=== PATIENT | female | born 1935 | race Hispanic/Latino ===

== ENCOUNTER → 2017-10-17 | Outpatient (CLI) | payer OTHER ==
[~2017-10-17] MED LIST: ASPI-1012 PO; GABA-531 PO; HYDR-309 PO; LOSA100T29 PO; METF500T6 PO; OXYB5TAB PO; PRAV20TA4 PO; TRAZ-185 PO
== END | disposition home or self-care (01) ==
LOC: OIH 09:40
PROVIDERS: ATTEND Family Medicine
DX: I12.9 Hypertensive chronic kidney disease with stage 1 through stage 4 chronic kidney disease, or unspecified chronic kidney disease (principal); N18.9 Chronic kidney disease, unspecified; R07.9 Chest pain, unspecified
CPT/HCPCS: 71046

== ENCOUNTER 2017-10-29 15:30 | Inpatient (IN) | payer OTHER ==
[~2017-10-29] VITALS: Ht 157.5 cm; Wt 71.2 kg
[~2017-10-29 15:30] MED LIST changes: -ASPI-1012 PO; -GABA-531 PO; -HYDR-309 PO
[2017-10-29 15:39] LABS: APPEARANCE,URINE Cloudy (CLEAR); BILIRUBIN,URINE Negative (NEGATIVE); COLOR,URINE Yellow (YELLOW); GLUCOSE, URINE (UA) TRACE mg/dL (NEGATIVE); KETONES,URINE Trace mg/dL (NEGATIVE); LEUKOCYTE ESTERASE ,URINE Large (NEGATIVE); NITRATE,URINE Positive (NEGATIVE); OCCULT BLOOD,URINE Negative (NEGATIVE); PROTEIN,URINE Trace (NEGATIVE)
[2017-10-29 15:47] LABS: BACTERIA,URINE Moderate /HPF (None Seen); RBC,URINE None Seen /HPF (0-1)
[2017-10-29 15:55] VITALS: BP 149/68
[2017-10-30] VITALS (20 sets, daily range): BP systolic 109–156; BP diastolic 54–85
[2017-10-30] MEDS ORDERED: GENTAMICIN SULFATE 240 MG in SODIUM CHLORIDE 0.9% 100 ML IV SCH (09:30)
[2017-10-30] MEDS: CEFAZOLIN SODIUM 1 GM VIAL IVP SCH ×3 (09:30→20:47)
[2017-10-30] MEDS ORDERED: SODIUM CHLORIDE 0.9% 1000ML 1,000 ML IV ONE (09:49)
[2017-10-30] MEDS ORDERED: GABA-531 PO (10:01)
[2017-10-30] MEDS ORDERED: OXYCODONE HCL 10 MG TAB.SR.12H PO ONE (11:42)
[2017-10-30] MEDS ORDERED: KETOROLAC TROMETHAMINE 15MG/ML ONE (11:42)
[2017-10-30] MEDS ORDERED: CELECOXIB 200 MG CAP ONE (11:42)
[2017-10-30] MEDS ORDERED: ACETAMINOPHEN EXTRA STRENGTH 500 MG TABLET ONE (11:42)
[2017-10-30] MEDS ORDERED: CEFAZOLIN SODIUM 1 GM VIAL ONE (11:52)
[2017-10-30] MEDS ORDERED: TRANEXAMIC ACID 1000MG/10ML IV ONE ×2 (11:52)
[2017-10-30] MEDS ORDERED: ROPIVACAINE 0.5% 5MG/ML 30ML IJ ONE (12:29)
[2017-10-30] MEDS ORDERED: EPHEDRINE SULFATE 50 MG/ML AMPULE ONE (13:01)
[2017-10-30] MEDS ORDERED: LIDOCAINE PF 2% 5ML ABBOJECT ONE (14:20)
[2017-10-30] MEDS ORDERED: ROCURONIUM BROMIDE 10MG/1ML 5ML VL ONE (14:20)
[2017-10-30] MEDS ORDERED: MIDAZOLAM HCL 1 MG/ML 2ML VIAL ONE (14:20)
[2017-10-30] MEDS ORDERED: PROPOFOL 10 MG/ML 20ML VIAL IV ONE ×2 (14:21→15:38)
[2017-10-30] MEDS ORDERED: ONDANSETRON HCL 4 MG/2 ML VIAL ONE (15:38)
[2017-10-30] MEDS ORDERED: DEXAMETHASONE SOD PHOSPHATE 10MG/ML 1ML VIAL ONE (15:38)
[2017-10-30] MEDS: SODIUM CHLORIDE 0.9% 1000ML 1,000 ML IV SCH (15:39)
[2017-10-30] MEDS ORDERED: OXYCODONE HCL 5 MG TAB PO PRN ×2 (15:45)
[2017-10-30] MEDS ORDERED: POTASSIUM CHLORIDE 20MEQ/100ML 100 ML IV PRN (15:45)
[2017-10-30] MEDS ORDERED: CALCIUM CARBONATE 500 MG TABLET PO PRN (15:45)
[2017-10-30] MEDS ORDERED: POTASSIUM CHLORIDE 20 MEQ ERTAB PO PRN (15:45)
[2017-10-30] MEDS ORDERED: TRAMADOL HCL 50 MG TABLET PO PRN (15:45)
[2017-10-30] MEDS ORDERED: LIDOCAINE HCL-MPF 1% 2ML VIAL IVP PRN (15:45)
[2017-10-30] MEDS: ACETAMINOPHEN EXTRA STRENGTH 500 MG TABLET PO SCH (15:45)
[2017-10-30] MEDS ORDERED: KETOROLAC TROMETHAMINE 15MG/ML IV PRN (15:45)
[2017-10-30] MEDS ORDERED: ONDANSETRON HCL 4 MG/2 ML VIAL IVP PRN (15:45)
[2017-10-30] MEDS ORDERED: FE FUMARATE/FA/MV, MIN COMB#15 1 TAB PO PRN (15:45)
[2017-10-30] MEDS ORDERED: TEMAZEPAM 15 MG CAPSULE PO PRN (15:45)
[2017-10-30] MEDS ORDERED: POTASSIUM CHLORIDE 10% ELIXIR 20 MEQ/15 ML UDCUP PO PRN (15:45)
[2017-10-30] MEDS ORDERED: DiphenhydrAMINE HCL 50 MG/ML VIAL IVP PRN (15:45)
[2017-10-30] MEDS: INSULIN HUMULIN R 100 UNIT/ML 3ML SQ SCH ×2 (16:30→20:59)
[2017-10-30] MEDS ORDERED: COMPOUND IV REFRIGERATED 1 EACH IVSOLN MISC PRN (18:45)
[2017-10-30] MEDS ORDERED: TRAZODONE HCL 50 MG TAB PO PRN ×2 (18:45→19:29)
[2017-10-30] MEDS ORDERED: CEFAZOLIN 2GM / 50 ML 50 ML IV SCH (20:45)
[2017-10-30] MEDS: CELECOXIB 200 MG CAP PO SCH (20:47)
[2017-10-30] MEDS: FAMOTIDINE 20MG TAB 20 MG TAB PO SCH (20:47)
[2017-10-30] MEDS: ASPIRIN 325 MG TABLET PO SCH (20:47)
[2017-10-30] MEDS: GABAPENTIN 300 MG CAPSULE PO SCH (20:59)
[2017-10-30] MEDS ORDERED: PREGABALIN 25 MG CAP PO SCH (21:00)
[2017-10-30] MEDS ORDERED: Pravastatin Sodium 20 MG PO SCH (21:00)
[2017-10-31 00:05] VITALS: BP 114/74
[2017-10-31] MEDS: ACETAMINOPHEN EXTRA STRENGTH 500 MG TABLET PO SCH ×3 (00:16→15:03)
[2017-10-31] MEDS: SODIUM CHLORIDE 0.9% 1000ML 1,000 ML IV SCH ×2 (01:39→11:39)
[2017-10-31 03:58] LABS: HEMATOCRIT 28.7 % (36-48); MEAN CORPUSCULAR HEMOGLOBIN 33.2 pg (27.0-33.0); MEAN CORPUSCULAR HGB CONC 35.3 g/dL (32.0-36.0); MEAN CORPUSCULAR VOLUME 94.1 fL (79-99); PLATELET COUNT (AUTO) 179 K/uL (130-400); RED BLOOD CELL COUNT(AUTO) 3.05 MIL/uL (4.00-5.50); RED CELL DISTRIBUTION WIDTH 14.7 % (11.0-15.5); WHITE BLOOD COUNT (AUTO) 9.2 K/uL (4.8-10.8)
[2017-10-31 04:00] VITALS: BP 117/66
[2017-10-31 04:14] LABS: CREATININE 1.1 mg/dL (0.5-1.5); POTASSIUM 5.6 mmol/L (3.5-5.1)
[2017-10-31] MEDS: CEFAZOLIN SODIUM 1 GM VIAL IVP SCH (04:47)
[2017-10-31] MEDS: INSULIN HUMULIN R 100 UNIT/ML 3ML SQ SCH ×2 (06:49→11:30)
[2017-10-31] MEDS ORDERED: SODIUM POLYSTYRENE SULFONATE 15 GM/60 ML ML PO SCH (07:15)
[2017-10-31 07:30] VITALS: BP 106/66
[2017-10-31] MEDS ORDERED: METFORMIN HCL 500 MG TABLET PO SCH (07:30)
[2017-10-31] MEDS ORDERED: POLYETHYLENE GLYCOL 3350 17 GM POWD.PACK PO SCH (09:00)
[2017-10-31] MEDS ORDERED: GENTAMICIN SULFATE 240 MG in SODIUM CHLORIDE 0.9% 100 ML IV SCH (09:00)
[2017-10-31] MEDS ORDERED: OXYBUTYNIN 5 MG TAB.SR.24H PO SCH (09:00)
[2017-10-31] MEDS ORDERED: LOSARTAN 100 MG TABLET PO SCH (09:00)
[2017-10-31] MEDS: ASPIRIN 325 MG TABLET PO SCH (09:24)
[2017-10-31] MEDS: FAMOTIDINE 20MG TAB 20 MG TAB PO SCH (09:24)
[2017-10-31] MEDS: GABAPENTIN 300 MG CAPSULE PO SCH ×2 (09:24→15:03)
[2017-10-31] MEDS: CELECOXIB 200 MG CAP PO SCH (09:24)
[2017-10-31 12:14] VITALS: BP 103/62
[2017-10-31] MEDS ORDERED: HYDR-309 PO (16:51)
[2017-10-31 17:30] VITALS: BP 112/67
[2017-11-02] MEDS ORDERED: BISACODYL 10 MG SUPP.RECT RC PRN (15:45)
== END 2017-10-31 19:50 | disposition home health service (06) | DRG 483 ==
LOC: EDSTATUS 15:30 → DAHIP 10-30 09:00 → 4AH 10-30 16:31
PROVIDERS: ADMIT Orthopaedic Surgery; ATTEND Orthopaedic Surgery
PROC: 0RRK00Z Replacement of Left Shoulder Joint with Reverse Ball and Socket Synthetic Substitute, Open Approach (ICD-10-PCS; principal; 2017-10-30 13:22)
DX: M12.812 Other specific arthropathies, not elsewhere classified, left shoulder (principal); E78.5 Hyperlipidemia, unspecified; Z79.82 Long term (current) use of aspirin; Z96.641 Presence of right artificial hip joint; Z96.652 Presence of left artificial knee joint; G89.29 Other chronic pain; E11.22 Type 2 diabetes mellitus with diabetic chronic kidney disease; I12.9 Hypertensive chronic kidney disease with stage 1 through stage 4 chronic kidney disease, or unspecified chronic kidney disease; N18.3 Chronic kidney disease, stage 3 (moderate); E11.42 Type 2 diabetes mellitus with diabetic polyneuropathy; E78.00 Pure hypercholesterolemia, unspecified; E11.51 Type 2 diabetes mellitus with diabetic peripheral angiopathy without gangrene; E66.01 Morbid (severe) obesity due to excess calories; F51.01 Primary insomnia; D50.8 Other iron deficiency anemias
CPT/HCPCS: 36415; 73020; 80048; 81001; 82948; 84132; 85027; 88304; 88311; 96365; 96374; 97039; A4218; A4565; J0690; J1100; J1580; J1885; J2001; J2250; J2405; J2704; J2795; J3490; J7030

== ENCOUNTER 2020-01-13 13:54 | Inpatient (IN) | payer OTHER ==
[~2020-01-13] VITALS: Ht 165.1 cm; Wt 59.9 kg
[~2020-01-13 13:54] MED LIST changes: +GABA-531 PO; +HYDR-4457 PO; -LOSA100T29 PO; +LOSA100T58 PO; +METF-444 PO; -METF500T6 PO; +OXYB-66 PO; -OXYB5TAB PO
[2020-01-13 14:28] LABS: BASOPHILS % (AUTO) 0.2 % (0.0-5.0); EOSINOPHILS % (AUTO) 0.1 % (0.0-8.0); HEMATOCRIT 32.7 % (36-48); LYMPHOCYTES % (AUTO) 7.3 % (21.0-51.0); MEAN CORPUSCULAR HEMOGLOBIN 31.5 pg (27.0-33.0); MEAN CORPUSCULAR HGB CONC 33.6 g/dL (32.0-36.0); MEAN CORPUSCULAR VOLUME 93.7 fL (79-99); NEUTROPHILS % (AUTO) 84.1 % (40.0-77.0); PLATELET COUNT (AUTO) 172 K/uL (130-400); RED BLOOD CELL COUNT(AUTO) 3.49 MIL/uL (4.00-5.50); RED CELL DISTRIBUTION WIDTH 13.2 % (11.0-15.5); WHITE BLOOD COUNT (AUTO) 10.2 K/uL (4.8-10.8)
[2020-01-13 14:46] LABS: CREATININE 2.2 mg/dL (0.5-1.5); POTASSIUM 4.8 mmol/L (3.5-5.1)
[2020-01-13 15:00] LABS: ALBUMIN 3.1 g/dL (3.5-5.0); BILIRUBIN,TOTAL 0.4 mg/dL (0.2-1.0); TOTAL PROTEIN, SERUM 6.5 g/dL (6.0-8.3)
[2020-01-13] MEDS ORDERED: ASPIRIN 325 MG TABLET ONE (15:12)
[2020-01-13 15:18] LABS: APPEARANCE,URINE CLOUDY (CLEAR); BILIRUBIN,URINE SMALL (NEGATIVE); COLOR,URINE YELLOW (YELLOW); GLUCOSE, URINE (UA) NEGATIVE (NEGATIVE); KETONES,URINE NEGATIVE (NEGATIVE); LEUKOCYTE ESTERASE ,URINE LARGE (NEGATIVE); NITRATE,URINE NEGATIVE (NEGATIVE); OCCULT BLOOD,URINE MODERATE (NEGATIVE); PROTEIN,URINE 100 mg/dL (NEGATIVE)
[2020-01-13 15:25] LABS: INR 0.93 (0.85-1.15); PARTIAL THROMBOPLASTIN TIME 33.2 SEC (26.3-35.5); PROTHROMBIN TIME 10.1 SEC (9.6-11.6)
[2020-01-13 15:29] LABS: BACTERIA,URINE Many /HPF (None Seen); WBC,URINE 51-100 /HPF (0-1)
[2020-01-13 15:30] LABS: MUCUS,URINE Few LPF (None Seen); SQUAMOUS EPITHELIAL CELL,UR 0-2 /HPF (0-2)
[2020-01-13] MEDS ORDERED: CEFTRIAXONE SODIUM 1 GM ONE (16:28)
[2020-01-13] MEDS ORDERED: HEPARIN SODIUM 5000UNIT/ML 1ML VIAL ONE (23:24)
[2020-01-14] MEDS ORDERED: MIDODRINE HCL 5 MG TABLET ONE ×2 (03:37→06:43)
[2020-01-14] MEDS ORDERED: SODIUM CHLORIDE 0.9% 1000ML 1,000 ML IV SCH (07:15)
[2020-01-14] MEDS ORDERED: GLUCAGON 1MG KIT 1 MG ML IM PRN (11:00)
[2020-01-14] MEDS ORDERED: HYDROCODONE/ACETAMINOPHEN 5/325 MG TAB PO PRN (11:00)
[2020-01-14] MEDS ORDERED: POTASSIUM CHLORIDE 20MEQ/100ML 100 ML IV PRN (11:00)
[2020-01-14] MEDS ORDERED: LIDOCAINE HCL-MPF 1% 2ML VIAL IV PRN (11:00)
[2020-01-14] MEDS ORDERED: DEXTROSE 50%-WATER 50 ML DISP.SYRIN IV PRN (11:00)
[2020-01-14] MEDS ORDERED: TRAZODONE HCL 50 MG TAB PO PRN (11:00)
[2020-01-14] MEDS ORDERED: POTASSIUM CHLORIDE 10% ELIXIR 20 MEQ/15 ML UDCUP PO PRN (11:00)
[2020-01-14] MEDS ORDERED: MAGNESIUM 2GM PREMIX 50ML 50 ML IV PRN (11:00)
[2020-01-14] MEDS ORDERED: POTASSIUM CHLORIDE 20 MEQ ERTAB PO PRN (11:00)
[2020-01-14] MEDS: INSULIN HUMULIN R 100 UNIT/ML 3ML SQ SCH ×3 (11:30→21:00)
[2020-01-14 12:24] VITALS: BP 132/67
[2020-01-14] MEDS: HEPARIN SODIUM 5000UNIT/ML 1ML VIAL SQ SCH ×2 (12:31→21:00)
[2020-01-14] MEDS: ASPIRIN 81MG TAB.CHEW PO SCH (12:33)
[2020-01-14] MEDS: MIDODRINE HCL 5 MG TABLET PO SCH ×3 (12:33→21:00)
--- NOTE | 2020-01-14 13:00 | NUR ---
MARQUEZ - SPOKE WITH SON FOR DC PLANNING GERALD REARDON SPOKE WITH SON MAYRA FOR DC PLANNING. PER SON, PATIENT LIVES ALONE, IS INDEPENDENT OF ADLS, HAS NO DME/HH OR PROVIDER SERVICES, AND DCP IS HOME, SON TO PROVIDE SERVICES Addendum: 01/15/20 at 1928 by MARLYN CLAROS RN CM Amended: Links added.
--- NOTE | 2020-01-14 14:51 | NUR ---
1440 patient signed IM Letter, I faxed IM Letter to [phone] and placed in chart under consent tab.
[2020-01-14 15:37] VITALS: BP 104/54
[2020-01-14] MEDS: CEFTRIAXONE SODIUM 1 GM IVP SCH (17:18)
[2020-01-14] MEDS: GABAPENTIN 300 MG CAPSULE PO SCH ×2 (17:18→21:00)
[2020-01-14 19:26] VITALS: BP 104/50
[2020-01-14] MEDS ORDERED: ATORVASTATIN CALCIUM 10 MG TABLET PO SCH (21:00)
--- NOTE | 2020-01-14 23:29 | NUR ---
Lab called regarding troponin of 1.20 Called CARLTON Tyler for troponin of 1.20, up from previously 0.91 Pt is asymptomatic however. Discussed w/CARLTON Tyler, requests troponin recheck 6 hours after last and to call if pt becomes symptomatic.
[2020-01-14 23:33] VITALS: BP 130/66
[2020-01-15 03:44] VITALS: BP 122/65
[2020-01-15 04:19] LABS: BASOPHILS % (AUTO) 0.4 % (0.0-5.0); EOSINOPHILS % (AUTO) 0.9 % (0.0-8.0); HEMATOCRIT 30.2 % (36-48); LYMPHOCYTES % (AUTO) 12.4 % (21.0-51.0); MEAN CORPUSCULAR HEMOGLOBIN 30.9 pg (27.0-33.0); MEAN CORPUSCULAR HGB CONC 32.8 g/dL (32.0-36.0); MEAN CORPUSCULAR VOLUME 94.4 fL (79-99); MONOCYTES % (AUTO) 10.1 % (3.0-13.0); NEUTROPHILS % (AUTO) 75.7 % (40.0-77.0); PLATELET COUNT (AUTO) 150 K/uL (130-400); RED CELL DISTRIBUTION WIDTH 13.3 % (11.0-15.5); WHITE BLOOD COUNT (AUTO) 7.9 K/uL (4.8-10.8)
[2020-01-15 05:20] LABS: ALBUMIN 2.3 g/dL (3.5-5.0); B-TYPE NATRIURETIC PEPTIDE 241 pg/mL (0-100); BILIRUBIN,TOTAL 0.2 mg/dL (0.2-1.0); CREATININE 1.3 mg/dL (0.5-1.5); MAGNESIUM 1.6 mg/dL (1.80-2.40); PHOSPHORUS 2.2 mg/dL (2.5-4.9); POTASSIUM 4.2 mmol/L (3.5-5.1)
[2020-01-15] MEDS: INSULIN HUMULIN R 100 UNIT/ML 3ML SQ SCH ×4 (05:24→21:34)
[2020-01-15 08:37] VITALS: BP 135/80
[2020-01-15] MEDS ORDERED: LOSARTAN 100 MG TABLET PO SCH (09:00)
[2020-01-15] MEDS: OXYBUTYNIN 5 MG TAB.SR.24H PO SCH (09:00)
[2020-01-15] MEDS: MIDODRINE HCL 5 MG TABLET PO SCH ×3 (09:00→21:00)
[2020-01-15] MEDS ORDERED: ENOXAPARIN SODIUM 40 MG/0.4 ML SYRINGE SQ SCH (09:00)
[2020-01-15] MEDS: GABAPENTIN 300 MG CAPSULE PO SCH ×3 (10:18→21:31)
[2020-01-15] MEDS: PANTOPRAZOLE SODIUM 40 MG TABLET.DR PO SCH (10:18)
[2020-01-15] MEDS: ASPIRIN 81MG TAB.CHEW PO SCH (10:18)
[2020-01-15] MEDS: HEPARIN SODIUM 5000UNIT/ML 1ML VIAL SQ SCH ×2 (10:24→21:35)
--- NOTE | 2020-01-15 10:28 | NUR ---
Midrodrine held for b/p >130.
[2020-01-15] MEDS ORDERED: CLOPIDOGREL BISULFATE 300 MG TAB PO SCH (12:00)
[2020-01-15 12:09] VITALS: BP 127/71
[2020-01-15] MEDS ORDERED: OXYBUTYNIN CHLORIDE 5 MG TABLET ONE (16:28)
[2020-01-15] MEDS: CEFTRIAXONE SODIUM 1 GM IVP SCH (16:32)
[2020-01-15 16:40] VITALS: BP 125/78
--- NOTE | 2020-01-15 18:50 | NUR ---
call made to [employer] dispatcher for regarding pt fall. No new orders made at this time. Will continue to monitor.
[2020-01-15 20:17] VITALS: BP 134/74
[2020-01-15] MEDS ORDERED: SODIUM CHLORIDE 0.9% 250 ML IV ONE (22:18)
[2020-01-16 00:03] VITALS: BP 143/77
[2020-01-16 04:08] VITALS: BP 144/75
[2020-01-16 05:20] LABS: BASOPHILS % (AUTO) 0.5 % (0.0-5.0); EOSINOPHILS % (AUTO) 2.6 % (0.0-8.0); LYMPHOCYTES % (AUTO) 20.7 % (21.0-51.0); MEAN CORPUSCULAR HEMOGLOBIN 30.8 pg (27.0-33.0); MEAN CORPUSCULAR HGB CONC 32.9 g/dL (32.0-36.0); MEAN CORPUSCULAR VOLUME 93.7 fL (79-99); MONOCYTES % (AUTO) 16.3 % (3.0-13.0); NEUTROPHILS % (AUTO) 59.4 % (40.0-77.0); PLATELET COUNT (AUTO) 162 K/uL (130-400); RED BLOOD CELL COUNT(AUTO) 3.31 MIL/uL (4.00-5.50); RED CELL DISTRIBUTION WIDTH 13.3 % (11.0-15.5); WHITE BLOOD COUNT (AUTO) 5.7 K/uL (4.8-10.8)
[2020-01-16 05:38] LABS: ALBUMIN 2.5 g/dL (3.5-5.0); BILIRUBIN,TOTAL 0.2 mg/dL (0.2-1.0); CREATININE 1.2 mg/dL (0.5-1.5); MAGNESIUM 2.4 mg/dL (1.80-2.40); PHOSPHORUS 2.9 mg/dL (2.5-4.9); POTASSIUM 4.1 mmol/L (3.5-5.1); TOTAL PROTEIN, SERUM 6.5 g/dL (6.0-8.3)
[2020-01-16] MEDS: INSULIN HUMULIN R 100 UNIT/ML 3ML SQ SCH ×4 (06:22→20:53)
[2020-01-16 08:00] VITALS: BP 134/60
[2020-01-16] MEDS: MIDODRINE HCL 5 MG TABLET PO SCH ×3 (09:00→20:32)
[2020-01-16] MEDS: ATORVASTATIN CALCIUM 20 MG TABLET PO SCH (09:00)
[2020-01-16] MEDS: LOSARTAN 50 MG TABLET PO SCH (09:00)
[2020-01-16] MEDS: OXYBUTYNIN 5 MG TAB.SR.24H PO SCH (09:00)
[2020-01-16] MEDS: PANTOPRAZOLE SODIUM 40 MG TABLET.DR PO SCH (09:00)
[2020-01-16] MEDS: CLOPIDOGREL BISULFATE 75 MG TAB PO SCH (11:16)
[2020-01-16] MEDS: METOPROLOL SUCCINATE 50 MG TAB.SR.24H PO SCH (11:16)
[2020-01-16] MEDS: GABAPENTIN 300 MG CAPSULE PO SCH ×3 (11:17→20:32)
[2020-01-16] MEDS: ASPIRIN 81MG TAB.CHEW PO SCH (11:17)
[2020-01-16 11:36] VITALS: BP 154/71
[2020-01-16] MEDS: HEPARIN SODIUM 5000UNIT/ML 1ML VIAL SQ SCH ×2 (11:36→20:32)
[2020-01-16 16:00] VITALS: BP 157/84
[2020-01-16] MEDS: CEFTRIAXONE SODIUM 1 GM IVP SCH (18:29)
[2020-01-16 19:35] VITALS: BP 155/72
[2020-01-16] MEDS: GUAIFENESIN-DM 200/20 MG 10 ML PO PRN (20:32)
[2020-01-17 00:30] VITALS: BP 106/49
[2020-01-17 05:36] LABS: BASOPHILS % (AUTO) 0.6 % (0.0-5.0); EOSINOPHILS % (AUTO) 3.5 % (0.0-8.0); HEMATOCRIT 30.8 % (36-48); LYMPHOCYTES % (AUTO) 18.8 % (21.0-51.0); MEAN CORPUSCULAR HEMOGLOBIN 31.5 pg (27.0-33.0); MEAN CORPUSCULAR HGB CONC 34.1 g/dL (32.0-36.0); MEAN CORPUSCULAR VOLUME 92.5 fL (79-99); MONOCYTES % (AUTO) 13.4 % (3.0-13.0); NEUTROPHILS % (AUTO) 63.3 % (40.0-77.0); PLATELET COUNT (AUTO) 177 K/uL (130-400); RED BLOOD CELL COUNT(AUTO) 3.33 MIL/uL (4.00-5.50); WHITE BLOOD COUNT (AUTO) 5.4 K/uL (4.8-10.8)
[2020-01-17 05:55] LABS: ALBUMIN 2.6 g/dL (3.5-5.0); BILIRUBIN,TOTAL 0.3 mg/dL (0.2-1.0); MAGNESIUM 1.6 mg/dL (1.80-2.40); PHOSPHORUS 3.9 mg/dL (2.5-4.9); POTASSIUM 3.6 mmol/L (3.5-5.1); TOTAL PROTEIN, SERUM 6.5 g/dL (6.0-8.3)
[2020-01-17] MEDS: INSULIN HUMULIN R 100 UNIT/ML 3ML SQ SCH ×4 (06:08→21:00)
[2020-01-17 06:26] VITALS: BP 149/74
[2020-01-17] MEDS: GUAIFENESIN-DM 200/20 MG 10 ML PO PRN ×2 (06:39→14:25)
[2020-01-17] MEDS: ASPIRIN 81MG TAB.CHEW PO SCH (09:10)
[2020-01-17] MEDS: METOPROLOL SUCCINATE 50 MG TAB.SR.24H PO SCH (09:11)
[2020-01-17] MEDS: MIDODRINE HCL 5 MG TABLET PO SCH ×3 (09:11→21:45)
[2020-01-17] MEDS: PANTOPRAZOLE SODIUM 40 MG TABLET.DR PO SCH (09:11)
[2020-01-17] MEDS: GABAPENTIN 300 MG CAPSULE PO SCH ×3 (09:11→21:45)
[2020-01-17] MEDS: LOSARTAN 50 MG TABLET PO SCH (09:11)
[2020-01-17] MEDS: ATORVASTATIN CALCIUM 20 MG TABLET PO SCH (09:11)
[2020-01-17] MEDS: OXYBUTYNIN 5 MG TAB.SR.24H PO SCH (09:11)
[2020-01-17] MEDS: CLOPIDOGREL BISULFATE 75 MG TAB PO SCH (09:11)
[2020-01-17] MEDS: HEPARIN SODIUM 5000UNIT/ML 1ML VIAL SQ SCH ×2 (09:17→21:46)
--- NOTE | 2020-01-17 10:28 | NUR ---
Marisel BENDER NP, SPEAKING WITH PT.'S SON VIA TELEPHONE RE:PT.'S STATUS AND PLAN OF CARE. QUESTIONS ANSWERED BY MARKETING SENIOR RECRUITER.
[2020-01-17 11:52] VITALS: BP 148/67
[2020-01-17] MEDS: CEFTRIAXONE SODIUM 1 GM IVP SCH (15:20)
[2020-01-17 16:00] VITALS: BP 121/43
[2020-01-17 20:35] VITALS: BP 128/54
[2020-01-18] MEDS: GUAIFENESIN-DM 200/20 MG 10 ML PO PRN (04:00)
[2020-01-18 04:28] VITALS: BP 142/58
[2020-01-18] MEDS: INSULIN HUMULIN R 100 UNIT/ML 3ML SQ SCH ×3 (06:23→16:30)
[2020-01-18 08:00] VITALS: BP 128/81
[2020-01-18] MEDS: MIDODRINE HCL 5 MG TABLET PO SCH ×2 (09:00→14:00)
[2020-01-18] MEDS: LOSARTAN 50 MG TABLET PO SCH (09:16)
[2020-01-18] MEDS: ATORVASTATIN CALCIUM 20 MG TABLET PO SCH (09:18)
[2020-01-18] MEDS: GABAPENTIN 300 MG CAPSULE PO SCH ×2 (09:18→15:50)
[2020-01-18] MEDS: PANTOPRAZOLE SODIUM 40 MG TABLET.DR PO SCH (09:18)
[2020-01-18] MEDS: METOPROLOL SUCCINATE 50 MG TAB.SR.24H PO SCH (09:18)
[2020-01-18] MEDS: OXYBUTYNIN 5 MG TAB.SR.24H PO SCH (09:19)
[2020-01-18] MEDS: ASPIRIN 81MG TAB.CHEW PO SCH (09:19)
[2020-01-18] MEDS: CLOPIDOGREL BISULFATE 75 MG TAB PO SCH (09:19)
[2020-01-18] MEDS: HEPARIN SODIUM 5000UNIT/ML 1ML VIAL SQ SCH (09:24)
--- NOTE | 2020-01-18 10:00 | NUR ---
PATIENT'S SON VERY CONCERNED THAT [facility] IS GOING TO SEND PT TO NURSING RAY MESSAGE LEFT- CALL BACK MADE REASSURED SON THATDANIEL WICK REQUIRE CONSENT FORM PATIENT AND FAMILY, NO NOTES IN CHART THAT STATES REFERRAL WAS INITIATED, JUST SUGGESTED A PLAN. SON STATES HIS SISTER IS COMING FROM [place] TO TAKE PT BACK WITH HER. ADVISED LANE SOTO OF SAME, [employer] THAT PLAN, EXPECT TO DC TODAY Addendum: 01/18/20 at 1115 by MARLYN CLAROS RN CM Amended: Links added.
--- NOTE | 2020-01-18 11:15 | NUR ---
CALL KIKE LY ON DISCHARGE AT [phone] ON DISCHARGE CALL FROM DAUGHTER, ANXIOUS OVER THE PHONE, STATES SHE IS COMING RIGHT NOW TO GET HER MOM AND TAKE HER. STATESS THAT SHE JUST ARRIVED FOR[place]. SHE IS HERE TO TAKE HER MOM OUT OF THE HOSPITAL AND SHE IS NOT GOING INTO ANY [facility]. ADVISED HER THAT WE UNDERSTOOD THAT AND THAT A HOSPITAL CANNOT PLACE A PATIENT WITHOUT CONSENT.ADVISED HER THAT THE PATTERNMAKER APPRENTICE METAL STILL NEEDS TO DC PT, ETC. VERBALIZED UNDERSTANDING BUT SOUNDED WORRIED AND UPSET. NUMBERS GIVEN OF NURSING STATION AND FOR NURSE. ADVISED HER WOULD PUT NOTES IN CHART Addendum: 01/18/20 at 1121 by MARLYN CLAROS RN Amended: Links added.
[2020-01-18 12:45] VITALS: BP 147/72
[2020-01-18] MEDS: CEFTRIAXONE SODIUM 1 GM IVP SCH (15:51)
[2020-01-18] MEDS ORDERED: ASPI-1005 PO (15:56)
[2020-01-18] MEDS ORDERED: CLOP75TA14 PO (15:56)
[2020-01-18] MEDS ORDERED: METO50TA9 PO (15:56)
[2020-01-18] MEDS ORDERED: LOSA50TA2 PO (15:56)
[2020-01-18] MEDS ORDERED: SULF1TAB42 PO (15:58)
[2020-01-18 18:18] VITALS: BP 144/66
--- NOTE | 2020-01-18 18:29 | NUR ---
1830 Spoke With Daughter Amy Regarding Discharge instructions. She was made aware of patients diagnosis and need for follow ups with PCP and Cardiology in 2 weeks. She states she is taking her mother to [place] I did inform her that patient needs to see MDs as she did have a NSTEMI. She was made aware of discharge prescriptions and what pharmacy they were sent to and states she will pick them up today prior to getting her mother from hospital. Medications were reviewed as for what they are being given for.
== END 2020-01-18 18:45 | disposition home or self-care (01) | DRG 311 ==
LOC: EDH 13:54 → INTOOBSV 18:45 → OBSVTOIN 18:45 → EDHIP 18:45 → 4BH 01-14 10:56 → 4CH 01-16 23:04
PROVIDERS: ADMIT Internal Medicine; ATTEND Internal Medicine
DX: I24.9 Acute ischemic heart disease, unspecified (principal); G92 Toxic encephalopathy; N39.0 Urinary tract infection, site not specified; N18.4 Chronic kidney disease, stage 4 (severe); I95.9 Hypotension, unspecified; E11.40 Type 2 diabetes mellitus with diabetic neuropathy, unspecified; E11.21 Type 2 diabetes mellitus with diabetic nephropathy; B96.20 Unspecified Escherichia coli [E. coli] as the cause of diseases classified elsewhere; E11.22 Type 2 diabetes mellitus with diabetic chronic kidney disease; E66.9 Obesity, unspecified; E78.00 Pure hypercholesterolemia, unspecified; E78.5 Hyperlipidemia, unspecified; F03.90 Unspecified dementia, unspecified severity, without behavioral disturbance, psychotic disturbance, mood disturbance, and anxiety; I12.9 Hypertensive chronic kidney disease with stage 1 through stage 4 chronic kidney disease, or unspecified chronic kidney disease; Z79.02 Long term (current) use of antithrombotics/antiplatelets; Z79.82 Long term (current) use of aspirin; Z79.899 Other long term (current) drug therapy; Z20.828 Contact with and (suspected) exposure to other viral communicable diseases
CPT/HCPCS: 36415; 70450; 71045; 72125; 80053; 81001; 82550; 82948; 83605; 83735; 83880; 84100; 84484; 85025; 85610; 85730; 87040; 87077; 87088; 87186; 87426; 93005; 93306; 93356; G0378; J0696; J1644; J3475; J7050; U0003

== ENCOUNTER 2021-09-19 08:35 | Observation (INO) | payer OTHER ==
[2021-09-13 12:36] LABS: BASOPHILS % (AUTO) 0.8 % (0.0-5.0); EOSINOPHILS % (AUTO) 2.9 % (0.0-8.0); HEMATOCRIT 33.6 % (36-48); LYMPHOCYTES % (AUTO) 42.6 % (21.0-51.0); MEAN CORPUSCULAR HEMOGLOBIN 30.5 pg (27.0-33.0); MEAN CORPUSCULAR HGB CONC 31.8 g/dL (32.0-36.0); MEAN CORPUSCULAR VOLUME 95.7 fL (79-99); MONOCYTES % (AUTO) 8.3 % (3.0-13.0); NEUTROPHILS % (AUTO) 45.1 % (40.0-77.0); PLATELET COUNT (AUTO) 218 K/uL (130-400); RED BLOOD CELL COUNT(AUTO) 3.51 MIL/uL (4.00-5.50); WHITE BLOOD COUNT (AUTO) 3.9 K/uL (4.8-10.8)
[2021-09-13 12:49] LABS: CREATININE 0.9 mg/dL (0.5-1.5); POTASSIUM 5.1 mmol/L (3.5-5.1)
[2021-09-13 12:55] LABS: INR 1.01 (0.85-1.15)
[2021-09-13 12:57] LABS: PARTIAL THROMBOPLASTIN TIME 29.6 SEC (26.3-35.5)
[2021-09-18 14:54] VITALS: BP 147/62
[~2021-09-19] VITALS: Ht 165.1 cm; Wt 65.0 kg
[2021-09-19] VITALS (24 sets, daily range): BP systolic 101–153; BP diastolic 56–81
[2021-09-19] MEDS: CEFAZOLIN SODIUM 1 GM VIAL IVP SCH ×3 (06:00→19:51)
[~2021-09-19 08:35] MED LIST changes: +ATOR20TA65 PO; +DULO30CA52 PO; -GABA-531 PO; +GABA300C PO; -HYDR-4457 PO; +ISOS30TA92 PO; +LACTATED RINGERS 1000ML 1,000 ML IV SCH; +LEVO25CA4 PO; -LOSA100T58 PO; +LOSA50TA2 PO; +MELO-108 PO; +METO-408 PO; -OXYB-66 PO; -PRAV20TA4 PO; +TRAM50TA4 PO; -TRAZ-185 PO
[2021-09-19] MEDS ORDERED: 0.9%NACL 1000ML 1,000 ML IV ONE (09:58)
[2021-09-19] MEDS ORDERED: PROPOFOL 10 MG/ML 20ML VIAL IV ONE (10:46)
[2021-09-19] MEDS ORDERED: GLYCOPYRROLATE 1 MG/5 ML SYRINGE ONE (10:52)
[2021-09-19] MEDS ORDERED: ROCURONIUM 10MG/1ML SYR 10 MG/ML ML ONE (10:53)
[2021-09-19] MEDS ORDERED: NEOSTIGMINE 5MG/5ML SYR IV ONE (10:53)
[2021-09-19] MEDS ORDERED: FENTANYL CITRATE PF 50 MCG/1 ML 5ML AMP IV ONE (10:53)
[2021-09-19] MEDS ORDERED: ONDANSETRON 4MG INJ ONE (12:02)
[2021-09-19] MEDS ORDERED: TRANEXAMIC ACID 1000MG/10ML ONE (12:23)
[2021-09-19] MEDS ORDERED: ACET-2079 PO (13:14)
[2021-09-19] MEDS ORDERED: KCL 20 MEQ ERTAB PO PRN (14:00)
[2021-09-19] MEDS: 0.9%NACL 1000ML 1,000 ML IV SCH ×2 (14:00→19:56)
[2021-09-19] MEDS ORDERED: POTASSIUM CHLORIDE 10% ELIXIR 20 MEQ/15 ML UDCUP PO PRN (14:00)
[2021-09-19] MEDS ORDERED: ONDANSETRON 4MG INJ IVP PRN (14:00)
[2021-09-19] MEDS ORDERED: LIDOCAINE HCL-MPF 1% 2ML VIAL IV PRN (14:00)
[2021-09-19] MEDS ORDERED: POTASSIUM CHLORIDE 20MEQ/100ML 100 ML IV PRN (14:00)
[2021-09-19] MEDS ORDERED: MORPHINE 4 MG SYG IVP PRN (14:00)
[2021-09-19] MEDS ORDERED: HYDROCODONE/ACETAMINOPHEN 5/325 MG TAB PO PRN (14:00)
[2021-09-19] MEDS: GABAPENTIN 300 MG CAPSULE PO SCH ×2 (14:00→19:52)
[2021-09-19] MEDS: ACETAMINOPHEN 500 MG TABLET PO SCH ×2 (14:00→23:33)
[2021-09-19] MEDS ORDERED: MEPERIDINE-PF 25 MG/ML SYG ONE ×2 (14:18→14:30)
[2021-09-19] MEDS: INSULIN HUMULIN R 100 UNIT/ML 3ML SQ SCH ×2 (16:30→21:00)
[2021-09-19] MEDS: TRAMADOL HCL 50 MG TABLET PO SCH ×2 (18:04→23:33)
[2021-09-19] MEDS: FAMOTIDINE 20MG TAB PO SCH (19:52)
[2021-09-20] MEDS: CEFAZOLIN SODIUM 1 GM VIAL IVP SCH (02:43)
[2021-09-20 03:30] LABS: HEMATOCRIT 26.8 % (36-48); MEAN CORPUSCULAR HEMOGLOBIN 29.7 pg (27.0-33.0); MEAN CORPUSCULAR HGB CONC 31.3 g/dL (32.0-36.0); MEAN CORPUSCULAR VOLUME 94.7 fL (79-99); RED BLOOD CELL COUNT(AUTO) 2.83 MIL/uL (4.00-5.50); RED CELL DISTRIBUTION WIDTH 14.9 % (11.0-15.5); WHITE BLOOD COUNT (AUTO) 7.4 K/uL (4.8-10.8)
[2021-09-20 03:41] LABS: CREATININE 1.1 mg/dL (0.5-1.5); POTASSIUM 4.9 mmol/L (3.5-5.1)
[2021-09-20 04:19] VITALS: BP 99/58
[2021-09-20] MEDS: HYDROCODONE/ACETAMINOPHEN 10/325 MG TAB PO PRN ×2 (04:54→08:21)
[2021-09-20] MEDS: LEVOTHYROXINE 25 MCG TABLET PO SCH (05:47)
[2021-09-20] MEDS: TRAMADOL HCL 50 MG TABLET PO SCH ×4 (05:47→22:57)
[2021-09-20] MEDS: ACETAMINOPHEN 500 MG TABLET PO SCH ×3 (05:48→22:56)
[2021-09-20] MEDS: INSULIN HUMULIN R 100 UNIT/ML 3ML SQ SCH ×4 (05:51→19:43)
[2021-09-20 06:46] VITALS: BP 115/50
[2021-09-20] MEDS ORDERED: ROPIVICAINE 250MG+KETOROLAC 15MG+EPINEPHRINE 0.3+CLONIDINE 80 IV PRN ×5 (08:00)
[2021-09-20] MEDS: LOSARTAN 50 MG TABLET PO SCH (08:19)
[2021-09-20] MEDS: ENOXAPARIN SODIUM 30 MG/0.3 ML SQ SCH (08:19)
[2021-09-20] MEDS: METFORMIN HCL 500 MG TABLET PO SCH (08:20)
[2021-09-20] MEDS: DULOXETINE HCL 30 MG CAP PO SCH (08:20)
[2021-09-20] MEDS: ISOSORBIDE MONO 30MG SR TAB PO SCH (08:20)
[2021-09-20] MEDS: GABAPENTIN 300 MG CAPSULE PO SCH ×3 (08:20→19:43)
[2021-09-20] MEDS: FAMOTIDINE 20MG TAB PO SCH ×2 (08:20→19:43)
[2021-09-20] MEDS: POLYETHYLENE GLYCOL 3350 17 GM POWD.PACK PO SCH (08:21)
[2021-09-20] MEDS: **HM**(Metoprolol Succinate 12.5 MG PO SCH (08:33)
[2021-09-20] MEDS: 0.9%NACL 1000ML 1,000 ML IV SCH (10:00)
[2021-09-20 12:00] VITALS: BP 100/51
[2021-09-20 16:00] VITALS: BP_SYST 115; BP_SYST 140; BP_DIAS 47; BP_DIAS 67
[2021-09-20 21:15] VITALS: BP 94/50
[2021-09-20 23:29] VITALS: BP 93/49
[2021-09-21] VITALS (10 sets, daily range): BP systolic 90–134; BP diastolic 50–75
[2021-09-21] MEDS: INSULIN HUMULIN R 100 UNIT/ML 3ML SQ SCH ×4 (06:05→20:25)
[2021-09-21] MEDS: TRAMADOL HCL 50 MG TABLET PO SCH ×4 (06:22→23:25)
[2021-09-21] MEDS: LEVOTHYROXINE 25 MCG TABLET PO SCH (06:23)
[2021-09-21] MEDS: ACETAMINOPHEN 500 MG TABLET PO SCH ×3 (06:23→20:27)
[2021-09-21] MEDS: POLYETHYLENE GLYCOL 3350 17 GM POWD.PACK PO SCH (08:49)
[2021-09-21] MEDS: FAMOTIDINE 20MG TAB PO SCH ×2 (08:49→20:27)
[2021-09-21] MEDS: METFORMIN HCL 500 MG TABLET PO SCH (08:50)
[2021-09-21] MEDS: ISOSORBIDE MONO 30MG SR TAB PO SCH (08:50)
[2021-09-21] MEDS: ENOXAPARIN SODIUM 30 MG/0.3 ML SQ SCH (08:50)
[2021-09-21] MEDS: LOSARTAN 50 MG TABLET PO SCH (08:50)
[2021-09-21] MEDS: GABAPENTIN 300 MG CAPSULE PO SCH ×3 (08:50→20:27)
[2021-09-21] MEDS: DULOXETINE HCL 30 MG CAP PO SCH (08:50)
[2021-09-21] MEDS: **HM**(Metoprolol Succinate 12.5 MG PO SCH (08:52)
[2021-09-22 00:08] VITALS: BP 136/62
[2021-09-22 04:29] VITALS: BP 142/62
[2021-09-22] MEDS: LEVOTHYROXINE 25 MCG TABLET PO SCH (05:04)
[2021-09-22] MEDS: ACETAMINOPHEN 500 MG TABLET PO SCH ×2 (05:04→13:54)
[2021-09-22] MEDS: TRAMADOL HCL 50 MG TABLET PO SCH ×2 (05:04→12:00)
[2021-09-22] MEDS: INSULIN HUMULIN R 100 UNIT/ML 3ML SQ SCH ×2 (06:30→11:30)
[2021-09-22 07:53] VITALS: BP 116/75
[2021-09-22] MEDS: GABAPENTIN 300 MG CAPSULE PO SCH ×2 (09:00→13:54)
[2021-09-22] MEDS: **HM**(Metoprolol Succinate 12.5 MG PO SCH (09:00)
[2021-09-22] MEDS: METFORMIN HCL 500 MG TABLET PO SCH (09:00)
[2021-09-22 11:01] VITALS: BP 141/78
[2021-09-22] MEDS: ENOXAPARIN SODIUM 30 MG/0.3 ML SQ SCH (12:05)
[2021-09-22] MEDS: DULOXETINE HCL 30 MG CAP PO SCH (12:05)
[2021-09-22] MEDS: LOSARTAN 50 MG TABLET PO SCH (12:06)
[2021-09-22] MEDS: ISOSORBIDE MONO 30MG SR TAB PO SCH (12:06)
[2021-09-22] MEDS: FAMOTIDINE 20MG TAB PO SCH (12:07)
[2021-09-22] MEDS: POLYETHYLENE GLYCOL 3350 17 GM POWD.PACK PO SCH (12:07)
[2021-09-22] MEDS ORDERED: BISACODYL 10 MG SUPP.RECT RC PRN (14:00)
[2021-09-22 16:31] VITALS: BP 132/66
== END 2021-09-22 17:29 ==
LOC: DAH 08:35 → DAHIP 08:36 → INTOOBSV 08:36 → 4AH 15:12
PROVIDERS: ADMIT Orthopaedic Surgery; ATTEND Orthopaedic Surgery
DX: M13.852 Other specified arthritis, left hip (principal); Z20.822 Contact with and (suspected) exposure to COVID-19; M25.552 Pain in left hip; I10 Essential (primary) hypertension; E11.9 Type 2 diabetes mellitus without complications; E78.00 Pure hypercholesterolemia, unspecified; Z86.73 Personal history of transient ischemic attack (TIA), and cerebral infarction without residual deficits; Z79.899 Other long term (current) drug therapy; Z98.890 Other specified postprocedural states
CPT/HCPCS: 27130; 36415 ×2; 73502; 80048 ×2; 82948 ×15; 85025; 85027; 85610; 85730; 87635; 93005; 96372 ×3; 96374; 96375; 96376; 97039 ×5; 97116 ×5; 97161; 97530; A4215; A4221; A4222; A4223; A4600; A4606; A4649 ×4; A4663; A4930; A6219; A6223; A6260; C1776; G0378 ×52; J0690 ×3; J1650 ×3; J2175 ×2; J2270; J2405; J2704; J2710; J3010; J3490 ×2; J7030 ×2